=== PATIENT | male | born 1980 | race Caucasian/White ===

== ENCOUNTER 2023-05-07 21:57 | Emergency (ER) | payer OTHER, SELFPAY ==
--- NOTE | ~2023-05-07 | CT_ITS ---
Non-contrast CT scan of the Abdomen and Pelvis Clinical indication: Right flank pain Technique: 2.5 mm axial scans were obtained through the abdomen and pelvis without intravenous or or al contrast. Dose reduction technique was used on this scan by utilizing automated exposure control a nd iterative reconstruction technique. The dose-length product (DLP) was 1092.49 mGy-cm. Findings: Images through the lung bases reveal no abnormalities. There is a 3 mm stone of the distal right ureter (axial image 161), with minimal fullness the right r enal collecting system as compared to the left. There are additional small bilateral nonobstructing r enal stones measuring up to 3 mm on the left, and 1 mm on the right. No left ureteral stone or left h ydronephrosis. The liver, spleen, pancreas, gallbladder, and adrenals appear normal. There are atherosclerotic calci fications of the aorta. There is no evidence of bowel obstruction. Very small fat-containing umbilical hernia present. No sugar dence for appendicitis. Images through the pelvis were performed. There is no evidence of ascites or lymphadenopathy. Urinary bladder unremarkable. Prostate gland and seminal vesicles are unremarkable. Impression: 3 mm distal right ureteral stone with minimal right hydronephrosis. Additional small bilateral nonobstructing renal stones. Reviewed, dictated and finalized at location . Impression: 3 mm distal right ureteral stone with minimal right hydronephrosis. Additional small bilateral nonobstructing renal stones.
[2023-05-07 22:19] VITALS: BP 170/96; PULSE 100; RESP 20; TEMP 36.6; O2SAT 98
[2023-05-07 22:38] LABS: Basophils Absolute Auto 0.1 K/mm3 (0.0-0.1); Basophils Percent Auto 0.6 % (0.2-1.2); Eosinophils Absolute Auto 0.1 K/mm3 (0-0.3); Hemoglobin 15.9 g/dL (14.0-18.0); Immature Granulocyte Absolute 0.03 K/mm3 (0.00-0.031); Immature Granulocyte Percent A 0.3 % (0-0.5); Lymphocytes Absolute Auto 1.96 K/mm3 (0.9-3.2); Lymphocytes Percent Auto 22.6 % (18.3-44.2); Mean Corpuscular HGB Conc 33.8 g/dl (32-36); Mean Corpuscular Volume 91.6 fl (80-100); Mean Platelet Volume 11.1 fl (7.4-10.4); Monocytes Absolute Auto 0.4 K/mm3 (0.1-0.6); Monocytes Percent Auto 5.1 % (2.6-8.5); Neutrophils Absolute Auto 6.1 K/mm3 (1.3-6.7); Neutrophils Percent Auto 70.4 % (45.5-73.1); Platelet Count Result 233 k/mm3 (150-375); Red Blood Count 5.13 M/mm3 (4.6-6.20); Red Cell Distribution Width 13.6 % (11.5-14.5); White Blood Count 8.7 K/mm3 (4.5-10.0)
[2023-05-07 22:47] LABS: Alanine Aminotransferase 69 U/L (6-50); Albumin Level 4.5 g/dL (3.5-5.1); Alkaline Phosphatase 77 U/L (38-126); Anion Gap 9 mmol/L (8-16); Aspartate Amino Transferase 51 U/L (17-59); Bilirubin,Total 0.5 mg/dL (0.2-1.3); Blood Urea Nitrogen 19 mg/dL (9-20); Calcium 9.3 mg/dL (8.4-10.2); Carbon Dioxide 24 mmol/L (22-30); Chloride 106 mmol/L (98-107); Estimated CRCL calculation 107 ml/min; Estimated Glomerular Filt Rate > 60; Glucose 253 mg/dL (65-110); Sodium 139 mmol/L (137-145)
[2023-05-07 23:47] VITALS: PULSE 85; RESP 20; O2SAT 97
[2023-05-07 23:54] VITALS: BP 159/108
--- NOTE | 2023-05-08 00:11 | ED.GENADULT ---
HPI - General Adult General Chief complaint: Abdominal Pain Stated complaint: flank pain Time Seen by Provider: 05/07/23 23:50 Source: patient Mode of arrival: ambulatory Limitations: no limitations History of Present Illness HPI narrative: This is a 42-year-old male who presents to the ED with chief complaint of right flank pain beginning around 2114 this evening. States it was sudden onset and 9 out of 10 pain. Reports the pain radiates into the right-sided abdomen. He took 2 Tylenol Extra Strength prior to arrival which she feels is helped. When he was in the waiting room he states it was down to a 7 and now reports that a 3. He reports that he had some nausea and vomiting at home as well. Denies any urinary symptoms. States he was able to urinate at home. Denies problem with bowel movements, fevers, chills, chest pain, shortness of breath. Related Data Home Medications Medication Instructions Recorded Confirmed fenofibrate micronized 134 mg 134 mg PO DAILY 04/16/23 04/16/23 capsule lisinopril 40 mg tablet 40 mg PO DAILY 04/16/23 04/16/23 metoprolol succinate 50 mg 50 mg PO DAILY 04/16/23 04/16/23 tablet,extended release 24 hr Allergies Allergy/AdvReac Type Severity Reaction Status Date / Time No Known Allergies Allergy Unverified 04/16/23 15:09 [facility] Past Medical History Medical History (Updated 05/08/23 @ 01:44 by Jean-Paul Franks PA-C) Essential (primary) hypertension Gout Mixed hyperlipidemia Morbid obesity Social History Social History (Updated 04/16/23 @ 15:14 by Stacy David MA) Smoking status: Former smoker Smokeless tobacco user: chewing tobacco Alcohol intake: never Substance use: never Substance use type: does not use Lack of Transportation: No Lack of Food: Never True Current Housing: I Have Housing Concerned About Future Housing: No Difficulty Paying Gas/Electric Bills: No Difficulty Paying for Meds: No Currently Unemployed: No Education: Trade/Vocational Certificate Difficulty w/ Childcare or Family Care: No Living arrangements: with family Occupation/Education: occupation Gender identity (if verbalized by the patient): Male Sexual Orientation (if Verbalized by the Patient): Straight or Heterosexual Exam Narrative: GENERAL: Well-appearing, well-nourished, and in no acute distress. HEAD: Normocephalic, atraumatic. EYES: PERRLA and EOMI. ENT: Nares clear, no rhinorrhea or epistaxis. Mucous membranes moist. Oropharynx without tonsillar hypertrophy exudate or other lesions. NECK: Supple. No adenopathy or masses. CHEST: No respiratory distress. Clear to auscultation. No wheezes rales or rhonchi HEART: Regular rate and rhythm. No murmur heard. Normal peripheral pulses. ABDOMEN: Mild tenderness to the right flank. Negative left flank tenderness. Soft, otherwise nontender, nondistended, normal active bowel sounds. Negative Mend[place] sign. Negative McBurney's point. Negative peritoneal signs. MSK: Normal range of motion. No edema. SKIN: Warm, dry, no rash. NEURO: Alert and oriented x3. No focal deficits. PSYCH: Normal mood and affect. Course Vital Signs Vital signs: Vital Signs Temperature 98 F 05/07/23 22:19 Pulse Rate 100 05/07/23 22:19 Respiratory Rate 20 05/07/23 22:19 Blood Pressure 170/96 H 05/07/23 22:19 Pulse Oximetry 98 05/07/23 22:19 Oxygen Delivery Room Air 05/07/23 22:19 Temperature 98 F 05/07/23 22:19 Pulse Rate 85 05/07/23 23:47 Respiratory Rate 20 05/07/23 23:47 Blood Pressure 159/108 H 05/07/23 23:54 Pulse Oximetry 97 05/07/23 23:47 Oxygen Delivery Room Air 05/07/23 23:47 Medical Decision Making [facility] Narrative Medical decision making narrative: This is a 42-year-old male who presents to the ED with chief complaint of right flank pain onset earlier this afternoon. Initial vitals are normal. Afebrile. His exam does reveal mild right flank tenderness. Abdominal e
[2023-05-08] MEDS: SODIUM CHLORIDE 0.9% IV 1,000 ML 999 ML IV CONT (00:44)
[2023-05-08 01:42] LABS: Appearance Urine Clear (Clear); Bacteria Urine None Seen /hpf; Bilirubin Urine Negative (Negative); Blood Urine 2+ (Negative); Color Urine Yellow (Yellow); Glucose Urine UA 3+ mg/dL (Negative); Ketones Urine Trace mg/dL (Negative); Leukocyte Esterase Ur Negative LEU/UL (Negative); Nitrate Urine Negative (Negative); Protein Urine Negative (Negative); Specific Grav Ur 1.029 (1.001-1.035); Squamous Epithelial Cell Urine None seen /hpf (Few); WBC Urine 0-5 /hpf
[2023-05-08 01:54] LABS: Add Urine Microscopic? YES
[2023-05-08] MEDS: KETOROLAC 30 MG/ML VIAL (*BKC) IV PUSH (02:04)
== END 2023-05-08 02:11 | disposition home or self-care (01) ==
PROVIDERS: Emergency Medicine; Emergency Provider Physician Assistant; PCP Family Medicine
DX: N13.2 Hydronephrosis with renal and ureteral calculous obstruction (principal); I10 Essential (primary) hypertension; E78.2 Mixed hyperlipidemia; E66.01 Morbid (severe) obesity due to excess calories; Z68.41 Body mass index [BMI] 40.0-44.9, adult; M10.9 Gout, unspecified; Z87.891 Personal history of nicotine dependence
CPT/HCPCS: 36415; 74176; 80053; 81001; 85025; 96361; 96374; 99284; J1885; J7030

== ENCOUNTER 2023-05-17 13:45 | Outpatient (CLI) | payer OTHER, SELFPAY ==
--- NOTE | ~2023-05-17 | XR_ITS ---
XR abdomen/kub 1V 05/17/2023 13:59 INDICATION: Follow-up right renal stone TECHNIQUE: KUB COMPARISON: CT dated 05/08/2023 FINDINGS: Bowel gas pattern is normal. There is no evidence of free air, mass, organomegaly, ascites or obstruction. No abnormal calculi are seen. The bones appear intact. IMPRESSION: 1: No acute abdominal abnormality identified. Reviewed, dictated and finalized at location A.
== END 2023-05-17 13:46 ==
PROVIDERS: PCP Family Medicine; Visit Provider Family Medicine
DX: N20.0 Calculus of kidney (principal)
CPT/HCPCS: 74018